=== PATIENT | female | born 2000 | race Caucasian/White ===

== ENCOUNTER 2024-08-17 10:19 | Emergency (ER) | payer OTHER ==
[2024-08-17 10:27] VITALS: BP 122/84; PULSE 72; RESP 18; TEMP 98.8; BMI 32.8
[2024-08-17] MEDS ORDERED: ACETAMINOPHEN 500 MG TABLET (FP) ONE (10:44)
[2024-08-17] MEDS: ACETAMINOPHEN 500 MG TABLET (FP) PO ONE (10:45)
== END 2024-08-17 12:51 | disposition home or self-care (01) ==
LOC: FER 10:19
DX: S93.401A Sprain of unspecified ligament of right ankle, initial encounter (principal); X50.1XXA Overexertion from prolonged static or awkward postures, initial encounter; Y92.219 Unspecified school as the place of occurrence of the external cause; Y93.02 Activity, running
CPT/HCPCS: 73610-TC-RT-FY; 73630-TC-RT-FY; 99283-25